=== PATIENT | female | born 1975 ===

== ENCOUNTER 2017-03-22 01:31 | Emergency (ER) | payer OTHER ==
[2017-03-22 01:51] VITALS: BP 132/77; PULSE 80; RESP 14; TEMP 97.9; O2SAT 100
--- NOTE | 2017-03-22 01:56 | C.PDOC ---
History Of Present Illness 41yo female, presents to ED for evaluation of injury to her right great toe, sustained 2 days ago when an aerosol can fell on her toe. States she has been taking Motrin for pain with relief. Patient states today she noted having some swelling and bruising to her toe, prompting the visit. No other complaints. Time Seen by Provider: 03/22/17 01:41 Chief Complaint (Nursing): Lower Extremity Problem/Injury History Per: Patient History/Exam Limitations: no limitations Onset/Duration Of Symptoms: Days Current Symptoms Are (Timing): Still Present - Ankle/Foot Description Of Injury: Struck With Object Past Medical History Reviewed: Historical Data, Nursing Documentation, Vital Signs Vital Signs: Last Vital Signs Temp 97.9 F 03/22/17 01:40 Pulse 80 03/22/17 01:40 Resp 14 03/22/17 01:40 BP 132/77 03/22/17 01:40 Pulse Ox 100 03/22/17 02:17 - Medical History PMH: No Chronic Diseases Family History: States: Unknown Family Hx - Social History Hx Alcohol Use: No Hx Substance Use: Yes - Immunization History Hx Tetanus Toxoid Vaccination: Yes Hx Influenza Vaccination: No Hx Pneumococcal Vaccination: No Review Of Systems Except As Marked, All Systems Reviewed And Found Negative. Musculoskeletal: Positive for: Foot Pain (right great toe pain) Physical Exam - Physical Exam Appears: Non-toxic, No Acute Distress Skin: Normal Color Head: Atraumatic, Normacephalic Eye(s): bilateral: Normal Inspection, EOMI Nose: Normal Oral Mucosa: Moist Neck: Normal ROM, Supple Chest: Symmetrical Respiratory: No Accessory Muscle Use Extremity: Normal ROM, Tenderness (tenderness noted to right great toe), Capillary Refill (< 2 sec), No Deformity, Swelling (swelling with subungal hematoma noted to right great toe. of note, patient's nail is partially covered in nail malay so the full nail is not visualized.) Pulses: Left Dorsalis Pedis: Normal, Right Dorsalis Pedis: Normal Neurological/Psych: Oriented x3, Normal Speech, Normal Sensation ED Course And Treatment O2 Sat by Pulse Oximetry: 100 (RA) Pulse Ox Interpretation: Normal Progress Note: Patient offered XR and drainage, but declines. Patient instructed on RICE method and informed to follow up with her PMD or adjuster piano action. Case discussed with Dr. Finch who agrees with plan and discharge. Disposition - Disposition Referrals: Per Luong DPM [Staff Provider] - Disposition: HOME/ ROUTINE Disposition Time: 01:55 Condition: STABLE Additional Instructions: Rest, ice and elevate the area. Follow up with podiatry in 1-2 days. Instructions: Subungual Hematoma (ED) Forms: [facility] (Portuguese), Work Excuse - Clinical Impression Clinical Impression: Subungual hematoma - PA / DRILLER HAND / Resident Statement MD/DO has reviewed & agrees with the documentation as recorded. - Scribe Statement The provider has reviewed the documentation as recorded by the Stephen Figueroa Provider Attestation: All medical record entries made by the Stephen were at my direction and personally dictated by me. I have reviewed the chart and agree that the record accurately reflects my personal performance of the history, physical exam, medical decision making, and the department course for this patient. I have also personally directed, reviewed, and agree with the discharge instructions and disposition.
== END 2017-03-22 02:06 | disposition home or self-care (01) ==
LOC: C.ER 01:31
DX: S90.111A Contusion of right great toe without damage to nail, initial encounter (principal); W20.8XXA Other cause of strike by thrown, projected or falling object, initial encounter